=== PATIENT | female | born 1955 | race Caucasian/White ===

== ENCOUNTER 2023-12-16 14:14 | Outpatient (CLI) | payer MEDICARE, MEDICAID ==
[~2023-12-16] VITALS: Ht 165.1 cm; Wt 136.1 kg
[2023-12-16] MEDS: albuterol 2.5 MG/3 ML nebule NEB ONE (14:49)
[2023-12-16 14:53] VITALS: PULSE 90; RESP 18; O2SAT 96
[2023-12-16 15:05] VITALS: PULSE 87; RESP 18
== END 2023-12-16 23:59 | disposition home or self-care (01) ==
LOC: RT 14:14
PROVIDERS: ATTEND Physician Assistant
DX: R06.02 Shortness of breath (principal); E66.9 Obesity, unspecified
CPT/HCPCS: 94060; 94760